=== PATIENT | female | born 2000 | race Caucasian/White ===

== ENCOUNTER 2018-04-02 20:48 | Observation (INO) ==
[2018-04-02] MEDS ORDERED: KETOROLAC TROMETHAMINE 15 MG/ML VIAL IV STA (21:08)
[2018-04-02] MEDS ORDERED: ONDANSETRON INJ 2 MG/ML 2 ML VIAL IV STA (21:08)
[2018-04-02] MEDS ORDERED: MoRPHine SULFATE 4 MG/ML 1 ML CARP\\VIAL IV STA (21:08)
[2018-04-02] MEDS ORDERED: SODIUM CHLORIDE 0.9% 1000ML 2,000 ML IV SCH (21:15)
[2018-04-02 21:18] LABS: Basophils # (auto) 0.03 K/uL (0-0.2); Basophils % (auto) 0.4 %; Eosinophils # (auto) 0.16 K/uL (0-0.5); Eosinophils % (auto) 1.9 %; Hemoglobin 13.7 g/dL (12.0-16.0); Immature Granulocytes # (auto) 0.02 K/uL (0.00-0.02); Immature Granulocytes % (auto) 0.2 %; Lymphocytes # (auto) 3.39 K/uL (1.2-3.4); Lymphocytes % (auto) 40.7 %; Mean Corpuscular Hgb Conc 34.3 g/dL (32-36); Mean Corpuscular Volume 93.2 fL (80-100); Mean Platelet Volume 10.7 fL (7.4-10.4); Monocytes # (auto) 0.46 K/uL (0.11-0.59); Monocytes % (auto) 5.5 %; Neutrophils # (auto) 4.26 K/uL (1.4-6.5); Neutrophils % (auto) 51.3 %; Platelet Count 209 K/uL (130-400); RDW Coefficient of Variation 12.8 % (11.5-14.5); RDW Standard Deviation 43.4 fL (36.4-46.3); Red Blood Count 4.29 M/uL (4.2-5.4); White Blood Count 8.32 K/uL (4.8-10.8)
[2018-04-02 21:19] LABS: Appearance Urine Clear (Clear); Bilirubin Urine Negative (Negative); Blood Urine Negative (Negative); Color Urine Yellow; Glucose Urine UA Negative (Negative); Ketones Urine Trace (Negative); Leukocyte Esterase Urine Negative (Negative); Nitrite Urine Negative (Negative); Protein Urine Negative (Negative); Specific Gravity Urine 1.017 (1.000-1.030); Urobilinogen Urine Negative (Negative)
[2018-04-02 21:34] LABS: Albumin Level 3.9 gm/dl (3.4-5.0); BUN Creatinine Ratio 8.7 (10-20); Calcium 8.4 mg/dl (8.5-10.1); Creatinine Clr Calc Pharmacy 105.2 ml/min; Est GFR (African American) 103.3; Est GFR (Non-African American) 89.1; Potassium 2.9 mmol/L (3.5-5.1)
[2018-04-02 21:38] LABS: Albumin Globulin Ratio 1.1 (0.9-2); Bilirubin,Total 0.3 mg/dl (0.2-1); Globulin 3.7 gm/dl (2.5-4.0); Total Protein 7.6 gm/dl (6.4-8.2)
[2018-04-02] MEDS ORDERED: IOVERSOL 100ml IV PRN (21:44)
--- NOTE | 2018-04-02 22:13 | CT Scan Report ---
CT abd pelvis IV con only CLINICAL HISTORY: Right lower quadrant abdominal pain COMPARISON STUDY: None. TECHNIQUE: The patient was scanned in a dynamic helical fashion during intravenous administration of 94 cc of Optiray 320. A dose lowering technique was utilized adhering to the principles of ALARA. CT DOSE: 349.28 mGy.cm FINDINGS: Lower chest: The heart is normal in size and configuration, without pericardial effusion. The lung ba ses and pleural spaces are clear. Liver: There is minimal periportal edema likely secondary to hydration. There are no space-occupying hepatic masses. The portal vein appears patent. Gallbladder: Unremarkable. Spleen: Normal in size and attenuation. Pancreas: Unremarkable. Adrenal glands: Unremarkable. Kidneys: There is symmetric renal cortical enhancement. The kidneys are normal in size without hydron ephrosis. Bowel: There are no transition zones indicate bowel obstruction. There is no acute diverticulitis. Th e appendix is difficult to visualize with certainty given the absence of orally administered contrast . There is a fluid-filled tubular structure measuring 9 mm in diameter which could represent the appe ndix. An adjacent small bowel could appear similar. There are no definite surrounding inflammatory ch anges. In a setting of right lower quadrant abdominal pain, an early acute appendicitis must be consi dered. Clinical correlation will be necessary given the difficulty in interpreting this study perform ed without oral contrast. Peritoneum: There is no intraperitoneal free air or abdominal ascites. Vasculature: The abdominal aorta is normal in course and caliber. Adenopathy: None. Pelvic viscera: The bladder, and pelvic viscera are unremarkable. Skeletal structures: No destructive osseous lesions are seen. There are nonspecific scattered sclerot ic skeletal lesions. Given the patient's young age and the absence of a known primary malignancy, the se are likely benign IMPRESSION: 1. No evidence of bowel obstruction. No evidence of free air 2. No evidence of acute diverticulitis 3. Difficult study to interpret in regards to acute appendicitis given the absence of orally administ ered contrast. There is a right lower quadrant fluid-filled structure measuring 9 mm in diameter whic h may represent a fluid-filled mildly dilated appendix (versus fluid-filled small bowel loop). In the setting of right lower quadrant abdominal pain, an early acute appendicitis must be considered. Clin ical correlation will be necessary. 4. Scattered nonspecific sclerotic skeletal lesions Electronically signed by: Jared Valentin M.D. 04/02/2018 10:11 PM
--- NOTE | 2018-04-02 23:11 | Surgery Consultation ---
Date of Consultation April 02, 2018 Assessment & Plan (1) Abdominal pain: at this time rec ct scan abd with oral contrast disacussed with Dr Brandt he will order talked by phone with pt,s mom History of Present Illness Allergies Allergy/AdvReac Type Severity Reaction Status Date / Time amoxicillin Allergy Severe Hives Verified 04/02/18 21:28 Home Medications Home Medications Medication Instructions Recorded Confirmed Type Ib Guard 1 tab PO DAILY 04/02/18 04/02/18 History linaclotide [Linzess] 290 mcg PO DAILY 04/02/18 04/02/18 History norethindrone-e.estradiol-iron 1 tab PO DAILY 04/02/18 04/02/18 History [ ()] Patient History Social History Feels Safe at Home: Yes Smoking Status: Never smoker Physical Exam 2 Vital Signs (Past 24 Hours): Last Vital Signs Temp 37.0 C 04/02/18 20:51 Pulse 75 04/02/18 22:06 Resp 20 04/02/18 22:06 BP 105/51 L 04/02/18 22:06 Pulse Ox 97 04/02/18 22:06 Physical Exam: non localized abd pain most guarding suprapubic area
[2018-04-03] MEDS ORDERED: ONDANSETRON INJ 2 MG/ML 2 ML VIAL IV STA ×2 (00:27→04:52)
[2018-04-03] MEDS ORDERED: IOVERSOL 100ml IV PRN (01:20)
--- NOTE | 2018-04-03 01:38 | Emergency Department Note ---
Entered by Kvng Kevin acting as a scribe for Beau Brandt DO History of Present Illness General Chief complaint: Abdominal Pain Stated complaint: Abdominal Pain Source: patient History of Present Illness Provider complaint: Abd pain Onset (ago): hour(s) 9 Location: abdomen Maximum Pain Intensity: 8 Associated symptoms: + other (nauseous, has diarrhea (2-3 times per day), and has frequent urination with burning); no cough The patient is a 17 year old female who presents to the Emergency Room with complaints of worsening abdominal pain that began approximately 9 hours ago. She notes the pain is in her lower abdomen and rates it as an 8/10. The patient reports that she feels nauseous, has diarrhea (2-3 times per day), and has frequent urination with burning. She notes she has "little control over her bowels" The patient denies upper respiratory issues such as coughing. The patient adds that she has a history of UTIs. The patient denies any abdominal surgical history. The patient reports that her last menstrual period was 3 weeks ago. Home Medications Home Medications Medication Instructions Recorded Confirmed Type Ib Guard 1 tab PO DAILY 04/02/18 04/02/18 History linaclotide [Linzess] 290 mcg PO DAILY 04/02/18 04/02/18 History norethindrone-e.estradiol-iron 1 tab PO DAILY 04/02/18 04/02/18 History [ ()] Allergies Allergy/AdvReac Type Severity Reaction Status Date / Time amoxicillin Allergy Severe Hives Verified 04/02/18 21:28 Past Med/Surg History Medical History No pertinent past medical history Social History Feels Safe at Home: Yes Smoking Status: Never smoker Review of Systems See HPI for pertinent positives & negatives. and A total of 10 systems reviewed and were otherwise negative Physical Exam Vital Signs Vital Signs - 24 hr 04/02/18 20:51 04/02/18 21:38 04/02/18 22:06 Temperature 37.0 C Temperature Source Oral Sepsis Action Taken by Nursing No Action Required Pulse Rate 75 Pulse Rate [Right Finger] 72 75 Pulse Rhythm [Right Finger] Respiratory Rate 20 18 20 Respiratory Effort / Characteristics Non-Labored Respiratory Depth Normal Blood Pressure 100/66 Blood Pressure [Left Arm] 118/70 105/51 L Blood Pressure Mean 77 Blood Pressure Mean [Left Arm] 86 69 Pulse Oximetry 100 100 97 Oxygen Delivery Method Room Air Room Air Room Air 04/02/18 23:56 Temperature Temperature Source Sepsis Action Taken by Nursing Pulse Rate Pulse Rate [Right Finger] 80 Pulse Rhythm [Right Finger] Regular Respiratory Rate 20 Respiratory Effort / Characteristics Non-Labored Spontaneous Respiratory Depth Normal Blood Pressure Blood Pressure [Left Arm] 115/60 Blood Pressure Mean Blood Pressure Mean [Left Arm] 78 Pulse Oximetry 100 Oxygen Delivery Method Room Air GENERAL:Lying down in bed, alert, tearful, well nourished, mild distress, non- toxic EYE EXAM: normal conjunctiva. OROPHARYNX: no exudate, no erythema, lips, buccal mucosa, and tongue normal and mucous membranes are moist NECK: supple, no nuchal rigidity, no adenopathy, non-tender LUNGS: Clear to auscultation. Normal chest wall mechanics HEART: no murmurs, S1 normal and S2 normal ABDOMEN: abdomen soft, normo-active bowel, sounds, no masses, no rebound or guarding. Periumbilical/RLQ tednerness upon palaption BACK: Back is symmetrical on inspection and there is no deformity, no midline tenderness, no CVA tenderness. SKIN: no rashes and no bruising UPPER EXTREMITIES: upper extremities are grossly normal. LOWER EXTREMITIES: No pitting edema. NEURO EXAM: Normal sensorium, cranial nerves II-XII grossly intact, normal speech, no gross weakness of arms, no gross weakness of legs. Course ED COURSE: Vital signs were reviewed and showed normal The patients medical record was reviewed The above diagnostic studies were performed and reviewed. ED treatments and interventions as stated above. 2101: The patient was evaluated in room A03. A complete history and physical examination was performed. Based on the patients age, coexisting illnesses, exam and lab findings the decision to treat as an outpatient was made. The patient remained stable while under my care. The patient appeared well at the time of discharge. 2305: Upon reevaluation, the patient appeared to have improvement of her symptoms. I discussed tonight's findings with her. She verbalized agreement of the treatment plan. She was discharged home. Administered Medications Ioversol (Optiray 320 100ml) 94 ml IV ONCE PRN PRN Reason: Interaction Checking Stop: 04/06/18 21:43 Last Admin: 04/02/18 21:44 Dose: 94 ml Ioversol (Optiray 320 100ml) 50 ml IV ONCE PRN PRN Reason: Interaction Checking Stop: 04/07/18 01:19 Last Admin: 04/03/18 01:21 Dose: 50 ml Discontinued Medications Sodium Chloride (Nss 1000ml) 2,000 mls @ 999 mls/hr IV .Q2H1M BURT Stop: 04/02/18 23:15 Last Infusion: 04/02/18 23:57 Dose: 0 mls/hr Admin: 04/02/18 21:21 Dose: 999 mls/hr Ketorolac Tromethamine (Toradol) 15 mg IV NOW STA Stop: 04/02/18 21:09 Last Admin: 04/02/18 21:21 Dose: 15 mg Morphine Sulfate (Morphine Sulfate) 4 mg IV NOW STA Stop: 04/02/18 21:09 Last Admin: 04/02/18 21:21 Dose: 4 mg Ondansetron HCl (Zofran) 4 mg IV NOW STA Stop: 04/02/18 21:09 Last Admin: 04/02/18 21:21 Dose: 4 mg Ondansetron HCl (Zofran) 4 mg IV NOW STA Stop: 04/03/18 00:28 Last Admin: 04/03/18 00:34 Dose: 4 mg Medical Decision Making Differential Diagnosis Differential diagnosis: Etiologies such as appendicitis, diverticulitis, PUD, biliary pathology, UTI, pancreatitis, obstruction, mesenteric ischemia, aortic pathology, infections, inflammatory bowel disease, renal colic, as well as others were entertained. Medical Records Attestation: I reviewed the patient's medical records. Home Medications Current Medication List: was personally reviewed by me Laboratory Data Attestation: I reviewed the patient's lab results. Result diagrams: 04/02/18 21:07 04/02/18 21:07 Lab Results 04/02/18 04/02/18 04/02/18 Range/Units 21:07 21:07 21:07 WBC 8.32 (4.8-10.8) K/uL RBC 4.29 (4.2-5.4) M/uL Hgb 13.7 (12.0-16.0) g/dL Hct 40.0 (37-47) % MCV 93.2 (80-100) fL MCH 31.9 (25-34) pg MCHC 34.3 (32-36) g/dL RDW Std Deviation 43.4 (36.4-46.3) fL RDW Coeff of Radha 12.8 (11.5-14.5) % Plt Count 209 (130-400) K/uL MPV 10.7 H (7.4-10.4) fL Immature Gran % (Auto) 0.2 % Neut % (Auto) 51.3 % Lymph % (Auto) 40.7 % [place] % (Auto) 5.5 % Eos % (Auto) 1.9 % Baso % (Auto) 0.4 % Immature Gran # (Auto) 0.02 (0.00-0.02) K/uL Neut # (Auto) 4.26 (1.4-6.5) K/uL Lymph # (Auto) 3.39 (1.2-3.4) K/uL [place] # (Auto) 0.46 (0.11-0.59) K/uL Eos # (Auto) 0.16 (0-0.5) K/uL Baso # (Auto) 0.03 (0-0.2) K/uL Sodium 140 (136-145) mmol/L Potassium 2.9 L (3.5-5.1) mmol/L Chloride 105 (98-107) mmol/L Carbon Dioxide 26 (21-32) mmol/L Anion Gap 9.0 (3-11) BUN 8 (7-18) mg/dl Creatinine 0.93 (0.6-1.2) mg/dl Est Cr Clr Drug Dosing 105.2 ml/min Est GFR ( Amer) 103.3 Est GFR (Non-Af Amer) 89.1 BUN/Creatinine Ratio 8.7 L (10-20) Glucose 106 H (70-99) mg/dl Calcium 8.4 L (8.5-10.1) mg/dl Total Bilirubin 0.3 (0.2-1) mg/dl AST 16 (15-37) U/L ALT 18 (12-78) U/L Alkaline Phosphatase 46 (45-117) U/L Total Protein 7.6 (6.4-8.2) gm/dl Albumin 3.9 (3.4-5.0) gm/dl Globulin 3.7 (2.5-4.0) gm/dl Albumin/Globulin Ratio 1.1 (0.9-2) Lipase 145 (73-393) U/L Urine Color Urine Appearance (Clear) Urine pH (4.5-7.5) Ur Specific [place] (1.000-1.030) Urine Protein (Negative) Urine Glucose (UA) (Negative) Urine Ketones (Negative) Urine Blood (Negative) Urine Nitrite (Negative) Urine Bilirubin (Negative) Urine Urobilinogen (Negative) Ur Leukocyte Esterase (Negative) POC Ur Test NEG (NEG) 04/02/18 Range/Units 21:07 WBC (4.8-10.8) K/uL RBC (4.2-5.4) M/uL Hgb (12.0-16.0) g/dL Hct (37-47) % MCV (80-100) fL MCH (25-34) pg MCHC (32-36) g/dL RDW Std Deviation (36.4-46.3) fL RDW Coeff of Radha (11.5-14.5) % Plt Count (130-400) K/uL MPV (7.4-10.4) fL Immature Gran % (Auto) % Neut % (Auto) % Lymph % (Auto) % [place] % (Auto) % Eos % (Auto) % Baso % (Auto) % Immature Gran # (Auto) (0.00-0.02) K/uL Neut # (Auto) (1.4-6.5) K/uL Lymph # (Auto) (1.2-3.4) K/uL [place] # (Auto) (0.11-0.59) K/uL Eos # (Auto) (0-0.5) K/uL Baso # (Auto) (0-0.2) K/uL Sodium (136-145) mmol/L Potassium (3.5-5.1) mmol/L Chloride (98-107) mmol/L Carbon Dioxide (21-32) mmol/L Anion Gap (3-11) BUN (7-18) mg/dl Creatinine (0.6-1.2) mg/dl Est Cr Clr Drug Dosing ml/min Est GFR ( Amer) Est GFR (Non-Af Amer) BUN/Creatinine Ratio (10-20) Glucose (70-99) mg/dl Calcium (8.5-10.1) mg/dl Total Bilirubin (0.2-1) mg/dl AST (15-37) U/L ALT (12-78) U/L Alkaline Phosphatase (45-117) U/L Total Protein (6.4-8.2) gm/dl Albumin (3.4-5.0) gm/dl Globulin (2.5-4.0) gm/dl Albumin/Globulin Ratio (0.9-2) Lipase (73-393) U/L Urine Color Yellow Urine Appearance Clear (Clear) Urine pH 6.0 (4.5-7.5) Ur Specific [place] 1.017 (1.000-1.030) Urine Protein Negative (Negative) Urine Glucose (UA) Negative (Negative) Urine Ketones Trace H (Negative) Urine Blood Negative (Negative) Urine Nitrite Negative (Negative) Urine Bilirubin Negative (Negative) Urine Urobilinogen Negative (Negative) Ur Leukocyte Esterase Negative (Negative) POC Ur Test (NEG) Imaging Data Radiologist's Impression: Radiology results as stated below per my review and the radiologist's interpretation: CT abd pelvis IV con only CLINICAL HISTORY: Right lower quadrant abdominal pain COMPARISON STUDY: None. TECHNIQUE: The patient was scanned in a dynamic helical fashion during intravenous administration of 94 cc of Optiray 320. A dose lowering technique was utilized adhering to the principles of ALARA. CT DOSE: 349.28 mGy.cm FINDINGS: Lower chest: The heart is normal in size and configuration, without pericardial effusion. The lung bases and pleural spaces are clear. Liver: There is minimal periportal edema likely secondary to hydration. There are no space-occupying hepatic masses. The portal vein appears patent. Gallbladder: Unremarkable. Spleen: Normal in size and attenuation. Pancreas: Unremarkable. Adrenal glands: Unremarkable. Kidneys: There is symmetric renal cortical enhancement. The kidneys are normal in size without hydronephrosis. Bowel: There are no transition zones indicate bowel obstruction. There is no acute diverticulitis. The appendix is difficult to visualize with certainty given the absence of orally administered contrast. There is a fluid-filled tubular structure measuring 9 mm in diameter which could represent the appendix. An adjacent small bowel could appear similar. There are no definite surrounding inflammatory changes. In a setting of right lower quadrant abdominal pain, an early acute appendicitis must be considered. Clinical correlation will be necessary given the difficulty in interpreting this study performed without oral contrast. Peritoneum: There is no intraperitoneal free air or abdominal ascites. Vasculature: The abdominal aorta is normal in course and caliber. Adenopathy: None. Pelvic viscera: The bladder, and pelvic viscera are unremarkable. Skeletal structures: No destructive osseous lesions are seen. There are nonspecific scattered sclerotic skeletal lesions. Given the patient's young age and the absence of a known primary malignancy, these are likely benign IMPRESSION: 1. No evidence of bowel obstruction. No evidence of free air 2. No evidence of acute diverticulitis 3. Difficult study to interpret in regards to acute appendicitis given the absence of orally administered contrast. There is a right lower quadrant fluid- filled structure measuring 9 mm in diameter which may represent a fluid-filled mildly dilated appendix (versus fluid-filled small bowel loop). In the setting of right lower quadrant abdominal pain, an early acute appendicitis must be considered. Clinical correlation will be necessary. 4. Scattered nonspecific sclerotic skeletal lesions Electronically signed by: Jared Valentin M.D. 04/02/2018 10:11 PM Blood Pressure Blood Pressure Findings: Normal blood pressure MDM Narrative Patient is a 17-year-old male who presents the ER for diarrhea along with abdominal pain. She has had diarrhea abdominal pain in the lower pelvic region. Labs were obtained and showed no significant leukocytosis or anemia. BMP with mild hypokalemia. LFTs bilirubin lipase is unremarkable. UA was negative. was negative. Patient was given IV fluids, IV Zofran Toradol. Patient does feel sniffily better. Initial CT showed questionable dilation of a 9 mm tubal structure in the right lower quadrant. Unable to confirm appendicitis. Patient was evaluated by general surgery who recommended a repeat CT. repeat CT shows that the contrast did not completely get to the appendix. Discussed with the attending radiologist and he believes that it is appendicitis as there is a 9 mm tubular structure lying out in the fat by itself. Following this I read discussed the case with general surgery. They recommend a repeat/third CT to confirm the appendix. Update the patient at bedside. Informed her that continued radiation does increase her risk for cancer later in life. She understood. Did offer oral antibiotics and discharge versus no oral antibiotics and discharge. Patient elected to repeat scan after discussion with mom. Repeat CT was placed for 330 to give the contrast adequate time. Decision was made just a CT of the pelvis to reduce radiation. Patient was signed out to Dr. Castillo at change of shift. Impression & Plan Abdominal pain, Diarrhea Discharge Plan Visit Data Chief Complaint: Abdominal Pain Stated Complaint: Abdominal Pain ED Provider: Beau Brandt Discharge Problem: Abdominal pain, Diarrhea Discharge Instructions Krames/Other Patient Handouts: Abd Pain Activity Restrictions/Additional Instructions: Please follow up with your primary care doctor or if you are a student, [facility] with in the next 24 hours. Any worsening of your symptoms, please return to the ED immediately. This includes any fevers greater than 100.4, worsening pain, chest pain, shortness breath, persistent nausea, vomiting, unable to eat or drink, or any other concerning signs or symptoms from your standpoint. Please take Tylenol or Motrin as needed for pain. Forms Stand Alone Forms: My [facility] Prescriptions Prescriptions: No Action norethindrone-e.estradiol-iron [ 1.5/30 (28)] 1.5 mg-30 mcg (21)/75 mg (7) tablet 1 tab PO DAILY RF: 0 linaclotide [Linzess] 290 mcg capsule 290 mcg PO DAILY RF: 0 Ib Guard 1 tab PO DAILY RF: 0 Referrals Referrals: PCP,NO [Primary Care Provider] - The scribe's documentation has been prepared under my direction and personally reviewed by me in its entirety. I confirm that the note above accurately reflects all work, treatment, procedures, and medical decision making performed by me.
[2018-04-03] MEDS ORDERED: HYDROmorphone INJ 0.5 MG/0.5 ML SYR IV STA (02:51)
[2018-04-03] MEDS ORDERED: METOCLOPRAMIDE HCL INJ 5 MG/ML 2 ML VIAL IV STA (02:51)
[2018-04-03] MEDS ORDERED: cefOXitin 1,000 MG/50 ML BAG IV STA (04:18)
--- NOTE | 2018-04-03 04:25 | Emergency Department Note ---
ED Visit Note Received patient on signout. History and physical verified by me. Patient is tender in the right lower quadrant with positive guarding. I did discuss this patient's case with her mother on the telephone. Her mother would like to proceed with the third CAT scan. Third CAT scan was done at [address] pelvis: Findings: Delayed imaging demonstrates contrast down the cecum and distal ileum with persistent nonopacification of the previously identified tubular structure consistent with an enlarged appendix. This measures up to 9.8 mm in size. There appears to be some inflammatory changes in the fat around the appendix. The appendix fails to opacify on delayed imaging. Left and right kidney and ureters are unremarkable. Mild prominence of the adnexa both left and right there is some free fluid noted in the pelvis. Impression: Findings consistent with appendicitis with an enlarged appendix which does not opacify with ankit-appendiceal inflammatory changes in the fat. No evidence of perforation no evidence for abscess. Prominence of the adnexa both left and right some free fluid noted in the pelvis. I did discuss the case with Dr. Stock who did agree to come and see the patient. Patient was in agreement with the treatment plan. .
--- NOTE | 2018-04-03 04:34 | Surgery Consultation ---
Date of Consultation April 03, 2018 Assessment & Plan (1) Abdominal pain: at this time rec ct scan abd with oral contrast disacussed with Dr Brandt he will order talked by phone with pt,s mom History of Present Illness Reason for Consultation: abdominal pain Requesting Physician: crow Allergies Allergy/AdvReac Type Severity Reaction Status Date / Time amoxicillin Allergy Severe Hives Verified 04/02/18 21:28 Home Medications Home Medications Medication Instructions Recorded Confirmed Type Ib Guard 1 tab PO DAILY 04/02/18 04/02/18 History linaclotide [Linzess] 290 mcg PO DAILY 04/02/18 04/02/18 History norethindrone-e.estradiol-iron 1 tab PO DAILY 04/02/18 04/02/18 History [ ()] Patient History Medical History No pertinent past medical history Social History Feels Safe at Home: Yes Smoking Status: Never smoker Physical Exam 2 Vital Signs (Past 24 Hours): Last Vital Signs Temp 37.0 C 04/02/18 20:51 Pulse 76 04/03/18 03:00 Resp 18 04/03/18 03:00 BP 125/76 04/03/18 03:00 Pulse Ox 98 04/03/18 03:00 _ (1) Abdominal pain Abdominal location: unspecified location Qualified Code(s): R10.9 - Unspecified abdominal pain
--- NOTE | 2018-04-03 04:48 | History & Physical Report ---
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 The bilateral lower quadrant that persisted finally she talked her mother and asked to come into the ER where she presented with no localized pain bilateral lower quadrant normal white count and a CT scan was obtained without contrast that showed a 9 mm tubular structure right lower quadrant there was fluid-filled nonspecific for appendicitis since the pain was not localized in that area Allergies Allergy/AdvReac Type Severity Reaction Status Date / Time amoxicillin Allergy Severe Hives Verified 04/02/18 21:28 Home Medications Home Medications Medication Instructions Recorded Confirmed Type Ib Guard 1 tab PO DAILY 04/02/18 04/02/18 History linaclotide [Linzess] 290 mcg PO DAILY 04/02/18 04/02/18 History norethindrone-e.estradiol-iron 1 tab PO DAILY 04/02/18 04/02/18 History [ ()] Past Med/Surg History Medical History No pertinent past medical history Social History Feels Safe at Home: Yes Smoking Status: Never smoker Review of Systems All systems reviewed & are unremarkable except as noted in HPI & below Abdominal exam reveals the abdomen to completely benign except for more localized tenderness in the suprapubic area both lower quadrant at the same amount of guarding. Physical Exam 2 Vital Signs (Past 24 Hours): Last Vital Signs Temp 37.0 C 02/17/19 20:51 Pulse 74 04/03/18 04:38 Resp 18 04/03/18 04:38 BP 104/67 04/03/18 04:38 Pulse Ox 100 04/03/18 04:38 Results & Data Laboratory Results White count was normal Diagnostic Findings Repeat CAT scan with contrast and delayed film showed no opacification of the appendix consistent with acute appendicitis _ (1) Abdominal pain Abdominal location: unspecified location Qualified Code(s): R10.9 - Unspecified abdominal pain
[2018-04-03] MEDS ORDERED: ONDANSETRON INJ 2 MG/ML 2 ML VIAL ONE ×2 (04:49→11:39)
[2018-04-03] MEDS ORDERED: GLYCOPYRROLATE 0.2 MG/ML VIAL ONE ×2 (04:49→11:50)
[2018-04-03] MEDS ORDERED: MIDAZOLAM HCL 1 MG/ML 2ML VIAL ONE ×2 (04:49→11:04)
[2018-04-03] MEDS ORDERED: NEOSTIGMINE METHYLSULFATE 5 MG/5 ML SYR ONE ×2 (04:49→11:50)
[2018-04-03] MEDS ORDERED: DEXAMETHASONE SOD INJ 4 MG/ML VIAL ONE ×2 (04:49→11:38)
[2018-04-03] MEDS ORDERED: fentaNYL citrate 100 MCG/2 ML VIAL ONE ×3 (04:49→11:04)
[2018-04-03] MEDS ORDERED: PROPOFOL IV EMULSION 10 MG/ML 20 ML VIAL IV ONE ×2 (04:49→11:04)
[2018-04-03] MEDS ORDERED: ROCURONIUM BROMIDE 10 MG/ML 5 ML VIAL ONE (04:50)
[2018-04-03] MEDS ORDERED: HYDROmorphone INJ 1 MG/ML SYRINGE IV PRN (04:52)
[2018-04-03] MEDS ORDERED: CLINDAMYCIN 600 MG in DEXTROSE 5% 50 ML IV SCH (06:00)
[2018-04-03] MEDS ORDERED: LIDOCAINE/EPINEPHRINE 1% 20 ML VIAL ONE ×2 (06:29→10:58)
--- NOTE | 2018-04-03 06:35 | CT Scan Report ---
CT pelvis w oral con only HISTORY: 17 years-old Female ? appy 0330 acute right lower quadrant abdominal pain COMPARISON: CT abdomen pelvis 04/02/2018 and 04/03/2018 TECHNIQUE: Multiple axial CT images of the pelvis were obtained with oral contrast only. A dose lower ing technique was used consistent with the principals of SHIRLEY. FINDINGS: Retained contrast noted within the inferior collecting systems, ureters and bladder from recent contr ast-enhanced study. Follicular changes of the ovaries. Uterus appears unremarkable. Aorta and IVC are unremarkable. No adenopathy. No bowel obstruction. No ascites. Enteric contrast noted within the sma ll bowel, cecum and ascending colon. Contrast extends into the proximal appendiceal lumen with the mi d and distal portions of the appendix not opacified with contrast. The appendix is fluid-filled and d emonstrates mild wall thickening with periappendiceal inflammatory stranding measuring up to 9 mm in transverse dimension. No evidence of perforation or drainable fluid collection. Soft tissues are unremarkable. Bones appear to be intact. There are a few indeterminate subcentimeter scattered sclerotic foci noted throughout the iliac bones and lower lumbar spine. IMPRESSION: 1. Findings compatible with acute uncomplicated appendicitis. No evidence of perforation or drainable fluid collection. 2. No bowel obstruction. The above report was generated using voice recognition software. It may contain grammatical, syntax o r spelling errors. Electronically signed by: Viet Irene M.D. 04/03/2018 6:33 AM
--- NOTE | 2018-04-03 07:02 | CT Scan Report ---
ABDOMEN AND PELVIS CT WITH IV AND ORAL CONTRAST CT DOSE: 399.65 mGy.cm HISTORY: Acute right lower quadrant abdominal pain abd pain ? appy TECHNIQUE: Multiaxial CT images of the abdomen and pelvis were performed following the use of intrave nous and oral contrast. A dose lowering technique was utilized adhering to the principles of ALARA. COMPARISON STUDY: CT pelvis of same day, CT abdomen and pelvis 04/02/2018. FINDINGS: The imaged lung bases are generally clear. No pneumatosis or pneumoperitoneum. Imaged inferior cardia c chambers appear unremarkable. The gallbladder, liver, spleen, pancreas and adrenal glands appear unremarkable. No intrahepatic bili emily ductal dilation. Delayed phase of IV contrast noted with opacified collecting systems and ureters . The bilateral kidneys appear unremarkable. No hydronephrosis. The opacified ureters and collecting systems are also unremarkable. The urinary bladder is within normal limits. Follicular changes noted about the ovaries. Uterus is unremarkable. Mild degree of free pelvic fluid is noted. Aorta and IVC a re unremarkable. No adenopathy. No small bowel obstruction. Enteric contrast has not yet reached the terminal ileum or cecum. A large amount of contrast is still noted within the gastric lumen and proximal small bowel. Tubular fluid-f illed structure measuring 9 mm is noted within the abdominal right lower quadrant compatible with a d ilated fluid-filled appendix. There is suggestion of a 5 mm appendicolith noted about the proximal ap pendiceal lumen. Mild adjacent inflammatory stranding. No drainable fluid collection or evidence of p erforation. Soft tissues are unremarkable. The breast parenchyma appears to be within normal limits. Scattered no nspecific prominently subcentimeter sclerotic foci noted about the lumbar spine and iliac bones. Bone s appear to be intact. Mild convex left curvature about the upper lumbar spine. IMPRESSION: 1. Dilated fluid-filled appendix measuring up to 9 mm with minimal adjacent periappendiceal inflammat ion and subcentimeter appendicolith is suggestive of acute uncomplicated appendicitis . 2. Mild free pelvic fluid may be reactive or physiologic. 3. No drainable fluid collection. 4. No bowel obstruction. Electronically signed by: Viet Irene M.D. 04/03/2018 7:01 AM
[2018-04-03] MEDS: LACTATED RINGER'S 1,000 ML IV SCH ×3 (08:28→21:13)
--- NOTE | 2018-04-03 08:29 | Anesthesiology Consultation ---
Date of Service April 03, 2018 Assessment & Plan Chart Review Chart Review: Acceptable Risk for Surgery and Patient NOT seen in Pre Admission Testing Consults Requested none ASA ASA1E Proposed Anesthesia Anesthesia Type: General Risk / Benefits Reviewed With: PT / POA / Parent / Guardian, Accepts Plan and Informed Consent Obtained NPO Date Last Intake of Fluids: 04/03/18 Time Last Intake of Fluids: 01:00 Date Last Intake of Solids: 04/02/18 Time Last Intake of Solids: 18:00 History Surgery Operation Date: 04/03/18 05:00 Proposed Procedures p Laparoscopic Appendectomy - Hansel Appiah MD, FACS Height/Weight Height: 5 ft 10 in Weight: 71.7 kg Allergies Allergy/AdvReac Type Severity Reaction Status Date / Time amoxicillin Allergy Severe Hives Verified 04/02/18 21:28 Medications Home Medications Medication Instructions Recorded Confirmed Last Taken Ib Guard 1 tab PO DAILY 04/02/18 04/02/18 Unknown linaclotide [Linzess] 290 mcg PO DAILY 04/02/18 04/02/18 Unknown norethindrone-e.estradiol-iron 1 tab PO DAILY 04/02/18 04/02/18 Unknown [Junel FE .07/13 (28)] Active Medications Generic Name Dose Route Start Last Admin Trade Name Freq PRN Reason Stop Dose Admin Lactated Ringer's 1,000 mls @ 125 mls/hr 04/03/18 05:00 04/03/18 08:28 Lr IV 05/03/18 04:59 125 mls/hr .Q8H BURT Administration Clindamycin Phosphate 600 mg/ 54 mls @ 100 mls/hr 04/03/18 06:00 04/03/18 08: 28 Dextrose IV 04/03/18 18:00 Infused PREOP BURT Titration Ioversol 94 ml 04/02/18 21:44 04/02/18 21:44 Optiray 320 100ml IV 04/06/18 21:43 94 ml ONCE PRN Administration Interaction Checking Ioversol 50 ml 04/03/18 01:20 04/03/18 01:21 Optiray 320 100ml IV 04/07/18 01:19 50 ml ONCE PRN Administration Interaction Checking Past Medical History Medical History No pertinent past medical history [place] teeth extracted Past Surgical History Surgical History History of esophagogastroduodenoscopy (EGD) Past Anesthesia History No Hx of Anesthesia Complications and No Family Hx of Anesthesia Complications History of PONV No Motion Sickness Screening History of Motion Sickness: No Social History Smoking Status: Never smoker Do You Dip or Chew Tobacco: No Hx Alcohol Use: No Alcohol Intake Frequency Comment: denies Hx Substance Use: No substance use type: does not use Exercise / Class Metabolic Activity 1 > 8 Run/Swim/Ski/Tennis Physical Exam Vital Signs Last Vital Signs Temp 37.0 C 04/02/18 20:51 Pulse 85 04/03/18 07:06 Resp 17 04/03/18 07:06 BP 97/53 L 04/03/18 07:06 Pulse Ox 98 04/03/18 07:06 Constitutional not obese ENMT Mouth: no dentition abnormality and dentition not poor Thyromental Distance: > or= 3.5 Finger Breadths Mallampati Class: II Neck normal visual inspection and trachea midline; neck extension not limited Respiratory normal respiratory effort Auscultation: lungs clear to auscultation bilaterally Cardiovascular Rate/Rhythm: regular rate and regular rhythm Heart Sounds: no murmur Musculoskeletal Spine: normal cervical ROM and no pain with cervical ROM Extremities: extremities normal to inspection Neurologic moves all extremities Motor/Sensory: no sensory deficit Psychiatric Orientation: alert and oriented x 3 Testing Laboratory Results 04/02/18 21:07 Urine Color Yellow 04/02/18 21:07 Urine Appearance Clear (Clear) 04/02/18 21:07 Urine pH 6.0 (4.5-7.5) 04/02/18 21:07 Ur Specific [place] 1.017 (1.000-1.030) 04/02/18 21:07 Urine Protein Negative (Negative) 04/02/18 21:07 Urine Glucose (UA) Negative (Negative) 04/02/18 21:07 Urine Ketones Trace (Negative) H 04/02/18 21:07 Urine Nitrite Negative (Negative) 04/02/18 21:07 Ur Leukocyte Esterase Negative (Negative) 04/02/18 21:07 04/02/18 21:07 POC Ur Test NEG
[2018-04-03] MEDS ORDERED: FLUMAZENIL 0.1 MG/1 ML 10 ML VIAL IV PRN (08:35)
[2018-04-03] MEDS ORDERED: ePHEDrine sulfate 50 MG/ML AMP IV PRN (08:35)
[2018-04-03] MEDS ORDERED: ATROPINE SULFATE 0.1 MG/ML 10ML SYR IV PRN (08:35)
[2018-04-03] MEDS ORDERED: ONDANSETRON INJ 2 MG/ML 2 ML VIAL IV PRN ×2 (08:35→12:21)
[2018-04-03] MEDS ORDERED: PROMETHAZINE HCL 12.5 MG in SODIUM CHLORIDE 0.9% 50 ML IV PRN (08:35)
[2018-04-03] MEDS ORDERED: NALOXONE HCL 0.4 MG/1 ML VIAL/CARP IV PRN (08:35)
[2018-04-03 08:41] LABS: BUN Creatinine Ratio 8.5 (10-20); Calcium 7.9 mg/dl (8.5-10.1); Creatinine Clr Calc Pharmacy 132.2 ml/min; Est GFR (African American) 136.1; Est GFR (Non-African American) 117.4; Potassium 3.3 mmol/L (3.5-5.1)
[2018-04-03] MEDS ORDERED: SUCCINYLCHOLINE 100MG/5ML SYR ONE (11:05)
[2018-04-03] MEDS ORDERED: CISATRACURIUM BESYLATE IV SOLN 2 MG/ML 10 ML VIAL IV ONE (11:38)
--- NOTE | 2018-04-03 12:05 | Post Operative Brief Note ---
Immediate Post Op Note v1 Date of Surgery April 03, 2018 Pre & Post Diagnosis Operation Date: 04/03/18 05:00 Pre-Op Diagnosis: Acute Appendicitis Post-Op Diagnosis: Acute Appendicitis Procedure Operation Date: 04/03/18 05:00 Actual Procedures p Laparoscopic Appendectomy - Hansel Appiah MD, FACS Surgeon Hansel Appiah MD, FACS Clinical Documentation Nurse thomas gilbert Estimated Blood Loss 5 Findings Consistent with Post-Op Diagnosis
[2018-04-03] MEDS ORDERED: OXYCODONE/ACETAMINOPHEN 5mg/325mg TAB PO PRN (12:21)
[2018-04-03] MEDS ORDERED: MoRPHine SULFATE 4 MG/ML 1 ML CARP\\VIAL IV PRN ×3 (12:21)
--- NOTE | 2018-04-03 12:25 | Operative Report ---
Post Operative Report Pre & Post Diagnosis Operation Date: 04/03/18 05:00 Pre-Op Diagnosis: Acute Appendicitis Post-Op Diagnosis: Acute Appendicitis Procedure Operation Date: 04/03/18 05:00 Actual Procedures p Laparoscopic Appendectomy - Hansel Appiah MD, FACS The patient was brought into the operating theater supine position general endotracheal anesthesia the abdomen was prepped Betadine solution and properly draped systemic antibiotics had been given at a timeout was had small incision was made supraumbilically sufficient enough to place a Veress needle followed by CO2 followed by 5 mm trocar point of entry inspected no injury identified direct visualization a 5 mm right upper quadrant port was placed with preemptive local analgesic seem to be identified easily we elevated and patient had a very long acutely nonruptured appendix at this point we converted the 5 mm umbilical port under direct visualization to an 11 mm and a 5 mm was placed in left lower quadrant camera was placed in left lower quadrant we then worked its way up elevated the cecum creating a window between the cecum and normal appendix at the takeoff we used one application of the 10 ANGELA then we maneuvered herself using clips to pretty much 10 mm clips was used to divide the mesoappendix once we freed this all up we placed in an Endopouch and took it out intact through the epigastric port and noticed that the appendiceal stump was about a centimeter and a half long therefore we went on back and resected another application of ANGELA to take it off completely out of the office the cecum the area was checked hemostasis appeared satisfactory there is no bleeding we irrigated under direct visualization we took up the left lower quadrant port right upper quadrant cord and thus the umbilical port 0 Vicryl [id number] was used for the umbilical opening x2 for omentum Monocryl for the other estimated blood loss 5 cc addendum Sharda MOODY present throughout the procedure helped with exposure camera work and closing Surgeon Hansel Appiah MD, FACS Ethologist sharda moody Estimated Blood Loss 5 Findings Consistent with Post-Op Diagnosis Specimens appendix Description of Procedure merda I attest to the content of the Intraoperative Record and any orders documented therein. Any exceptions are noted below.
[2018-04-03] MEDS: HYDROmorphone INJ 1 MG/ML SYRINGE IV PRN ×6 (12:30→13:06)
--- NOTE | 2018-04-03 13:15 | Anesthesiology Progress Note ---
Date of Service April 03, 2018 Anesthesia Post Procedure Vital Signs Vital Signs: Temp Pulse Pulse Pulse Resp BP BP 04/03/18 13:06 53 L 13 111/61 04/03/18 13:05 53 L 14 04/03/18 13:01 55 L 12 111/62 04/03/18 13:00 52 L 15 04/03/18 12:56 54 L 17 119/67 04/03/18 12:55 60 12 04/03/18 12:51 57 L 18 116/69 04/03/18 12:50 56 L 21 04/03/18 12:46 52 L 15 114/70 04/03/18 12:45 58 L 15 04/03/18 12:41 56 L 14 117/69 04/03/18 12:40 55 L 15 04/03/18 12:36 56 L 18 117/66 04/03/18 12:35 54 L 16 04/03/18 12:31 60 17 118/71 04/03/18 12:30 74 21 04/03/18 12:26 67 12 122/68 04/03/18 12:25 66 15 04/03/18 12:23 68 17 123/74 04/03/18 12:22 36.5 C 90 83 19 123/74 04/03/18 09:42 36.8 C 56 L 14 92/49 L 04/03/18 09:20 66 17 94/61 L 04/03/18 07:06 85 17 97/53 L 04/03/18 06:19 76 18 99/47 L 04/03/18 04:38 74 18 104/67 04/03/18 03:00 76 18 125/76 04/02/18 23:56 80 20 115/60 04/02/18 22:06 75 20 105/51 L 04/02/18 21:38 72 18 118/70 04/02/18 20:51 37.0 C 75 20 100/66 Pulse Ox 04/03/18 13:06 93 04/03/18 13:05 94 04/03/18 13:01 95 04/03/18 13:00 95 04/03/18 12:56 96 04/03/18 12:55 97 04/03/18 12:51 97 04/03/18 12:50 98 04/03/18 12:46 100 04/03/18 12:45 100 04/03/18 12:41 100 04/03/18 12:40 100 04/03/18 12:36 100 04/03/18 12:35 100 04/03/18 12:31 100 04/03/18 12:30 100 04/03/18 12:26 100 04/03/18 12:25 100 04/03/18 12:23 100 04/03/18 12:22 98 04/03/18 09:42 97 04/03/18 09:20 96 04/03/18 07:06 98 04/03/18 06:19 99 04/03/18 04:38 100 04/03/18 03:00 98 04/02/18 23:56 100 04/02/18 22:06 97 04/02/18 21:38 100 04/02/18 20:51 100 Pain Intensity Right Lower Abdomen: Pain Intensity: 4 Notes Mental Status: alert / awake / arousable Patient Amnestic to Procedure: Yes Nausea / Vomiting: adequately controlled Pain: adequately controlled Airway Patency, RR, SpO2: stable & adequate BP & HR: stable & adequate Hydration State: stable & adequate Anesthetic Complications: no major complications apparent
[2018-04-03] MEDS: OXYCODONE/ACETAMINOPHEN 5mg/325mg TAB PO PRN (23:33)
[2018-04-04] MEDS: LACTATED RINGER'S 1,000 ML IV SCH (05:16)
--- NOTE | 2018-04-04 07:02 | Surgery Progress Note ---
Date of Service April 04, 2018 Assessment & Plan (1) Abdominal pain: 04/04/18 1 POD can be d/c today instruction given increase diet At this time plan to proceed with laparoscopic appendectomy possible open risks and complications were explained to the patient including bleeding infection converting to an open procedure and she is agreeable her only request is we wait for her mother to come in before surgery approximately an hour and a half from now at this time rec ct scan abd with oral contrast disacussed with Dr Brandt he will order talked by phone with pt,s mom Subjective feels fine minimal pain Physical Exam 2 Vital Signs (Past 24 Hours): Last Vital Signs Temp 36.7 C 04/04/18 03:27 Pulse 54 L 04/04/18 03:27 Resp 16 04/04/18 03:27 BP 98/56 L 04/04/18 03:27 Pulse Ox 97 04/04/18 03:27 Physical Exam: alert coherent intraop findings discussed with pt Gastrointestinal (Abdomen): dressing trocar sites fine abd neg _ (1) Abdominal pain Abdominal location: unspecified location Qualified Code(s): R10.9 - Unspecified abdominal pain
[2018-04-04] MEDS: OXYCODONE/ACETAMINOPHEN 5mg/325mg TAB PO PRN (08:48)
[2018-04-04] MEDS ORDERED: IB GUARD PO SCH (09:00)
--- NOTE | 2018-04-04 13:19 | Anesthesiology Progress Note ---
Date of Service April 04, 2018 Anesthesia Post Procedure Vital Signs Vital Signs: Temp Pulse Pulse Resp BP BP Pulse Ox 04/04/18 11:28 36.4 C L 52 L 16 93/56 L 04/04/18 07:40 36.7 C 51 L 16 95/57 L 100 04/04/18 03:27 36.7 C 54 L 16 98/56 L 97 04/03/18 23:05 36.8 C 59 L 16 93/53 L 97 04/03/18 19:00 36.6 C 56 L 18 106/64 99 04/03/18 15:45 36.7 C 53 L 16 104/63 96 04/03/18 15:06 56 L 16 99/60 L 96 04/03/18 14:47 62 16 100/66 95 04/03/18 14:12 59 L 16 111/68 94 04/03/18 13:45 36.8 C 59 L 16 107/71 95 04/03/18 13:28 36.6 C 93 04/03/18 13:26 52 L 16 121/58 L 94 04/03/18 13:25 56 L 14 93 04/03/18 13:21 54 L 13 111/62 95 04/03/18 13:20 56 L 15 94 Notes Mental Status: alert / awake / arousable and participated in evaluation Nausea / Vomiting: adequately controlled Pain: adequately controlled Airway Patency, RR, SpO2: stable & adequate BP & HR: stable & adequate Hydration State: stable & adequate
--- NOTE | 2018-04-11 11:42 | Discharge Summary ---
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 The bilateral lower quadrant that persisted finally she talked her mother and asked to come into the ER where she presented with no localized pain bilateral lower quadrant normal white count and a CT scan was obtained without contrast that showed a 9 mm tubular structure right lower quadrant there was fluid-filled nonspecific for appendicitis since the pain was not localized in that area Principal Diagnosis Acute Appendicitis Discharge Data Allergies Allergy/AdvReac Type Severity Reaction Status Date / Time amoxicillin Allergy Severe Hives Verified 04/02/18 21:28 Consultations 04/03/18 04:14 Consult General Surgery Stat Procedures Performed Operation Date: 04/03/18 05:00 Actual Procedures p Laparoscopic Appendectomy - Hansel Appiah MD, FACS Ordered Studies 04/02/18 21:08 CT abd pelvis IV con only Stat 04/02/18 22:57 CT abd pelvis oral and IV con Stat 04/03/18 02:09 CT pelvis w oral con only Stat Hospital Course (1) Abdominal pain: Operation Date: 04/03/18 Pre-Op Diagnosis:Acute Appendicitis Post-Op Diagnosis:Acute Appendicitis Procedure Operation Date: 04/03/18 05:00 Actual Procedures p Laparoscopic Appendectomy - Hansel Appiah MD, FACS Post-operatively pt was admitted for observation with IV pain medication. 04/04/18 1 POD can be d/c today instruction given increase diet Total Time Total Time Spent Total Time Spent (In Minutes): 5 Discharge Plan Discharge Items Patient Disposition: Home - Self-Care Reason For Visit: S/P LAPAROSCOPIC APPENDECTOMY Discharge Diagnosis: Acute Appendicitis Discharge Goals: Decrease discomfort and Improve function Activity: As commented below Lifting: No more than 10 pounds Bathing Comment: You may shower in 24 hrs, but do not soak or scrub your incisions. Driving/Machine Use Comment: Do not drive if taking Percocet. Non-emergency contact: Surgeon Call non-emergency contact if: you have any medication questions, your pain is not controlled, your temperature is above 101.5, your wound has increased redness and your wound has increased drainage Follow-up/Referrals: Hansel Appiah MD, FACS [Surgeon] - (Please call the General Surgery clinic to schedule a follow-up appointment with Dr. Appiah. Please call the clinic at [phone] with any questions or concerns. ) PCP,NO [Primary Care Provider] - Diet: Regular Addtl Provider Instructions: You have steri-strips over your incisions. Do not pull or pick these off, please let these fall off by themselves. You may shower, but do not soak or scrub your incisions. Do not submerge your incisions in any pools, baths, or hot tubs. Please call the General Surgery clinic at [phone] to schedule a follow-up appointment with Dr. Appiah. Dr. Hansel Appiah [address] [place] [address], [place] [address] Prescriptions: Continue norethindrone-e.estradiol-iron 1.5 mg-30 mcg (21)/75 mg (7) tablet 1 tab PO DAILY RF: 0 linaclotide [Linzess] 290 mcg capsule 290 mcg PO DAILY RF: 0 Ib Guard 1 tab PO DAILY RF: 0 Stand-Alone Forms: Work/School Release (ED), My [facility], Opioid Pain Management Krames/Other Patient Handouts: Abd Pain Discharge Orders: Discharge Order (Routine); Ordered 04/04/18 Ordered By: Suzanna Dawn Admission Data Admit Date/Time: 04/03/18 13:56 Attending Provider: Hansel Appiah Admit Provider: Hansel Appiah Primary Care Provider: PCP,NO Other Providers: Hansel Appiah Service: Surgical Services Other Interventions: Discharge Summary Assessment (RN) Last Done: 04/04/18 10:48 Pending Studies at Discharge: Yes Studies:: Pathology report. DC Date/Time DO NOT enter until pt leaves facility: 04/04/18 13:54
== END 2018-04-04 13:54 | disposition home or self-care (01) ==
LOC: ED 20:48 → ASU 04-03 09:40 → 3N 04-03 09:40